=== PATIENT | male | born 1950 | race Hispanic/Latino ===

== ENCOUNTER 2019-10-22 04:54 | Inpatient (IN) | payer MEDICARE, OTHER ==
[2019-10-22 06:54] LABS: Anion Gap 18 mmol/L (10-20); Calc. Creatinine Clearance 0 mL/min (70-130); Calcium 8.7 mg/dL (7.8-10.44); Carbon Dioxide 16 mmol/L (23-31); Chloride 111 mmol/L (98-107); Estimated GFR-MDRD 10; Glucose 178 mg/dL (80-115); Potassium 4.4 mmol/L (3.5-5.1); Sodium 141 mmol/L (136-145)
[2019-10-22 07:05] LABS: BUN (Urea Nitrogen) 132 mg/dL (8.4-25.7)
[2019-10-22 08:48] VITALS: BMI 33.7
[2019-10-22] MEDS ORDERED: Acetaminophen 325 MG TAB PO PRN (08:52)
[2019-10-22] MEDS ORDERED: Senokot S 8.6-50 MG TAB PO PRN (08:52)
[2019-10-22] MEDS ORDERED: Dexamethasone 10 MG/ML VIAL SLOW IVP SCH (09:00)
[2019-10-22] MEDS ORDERED: Dexamethasone 20 MG/5 ML VIAL SLOW IVP SCH (09:00)
[2019-10-22] MEDS ORDERED: Prevnar 13-Val Conj/PF 0.5 ML SYRINGE IM ONE (10:00)
[2019-10-22] MEDS: Enoxaparin Sodium 30 MG/0.3 ML SYRINGE SC SCH (10:35)
[2019-10-22] MEDS: cefTRIAXone\\ROCEPHIN 1 GM in Sodium Chloride 0.9% 100 ML IVPB SCH (14:03)
[2019-10-22 14:25] LABS: #Eosinphils 0.1 thou/uL (0.0-0.7); #Monocytes 0.3 thou/uL (0.11-0.59); %Basophils 0.3 % (0.0-1.0); %Eosinophils 1.4 % (0.0-10.0); %Lymphocytes 10.4 % (21.0-51.0); %Monocytes 2.7 % (0.0-10.0); %Neutrophils 85.2 % (42.0-75.0); Hemoglobin 10.8 g/dL (14.0-18.0); Mean Corpuscular HGB CONC 33.1 g/dL (32.0-36.0); Mean Corpuscular Hemoglobin 31.6 pg (27.0-31.0); Mean Corpuscular Volume 95.5 fL (78.0-98.0); Mean Platelet Volume 9.3 fL (7.4-10.4); Platelet Count 193 thou/uL (130-400); RBC Distribution Width 12.6 % (11.5-14.5); Red Blood Cell (RBC) Count 3.41 mill/uL (4.70-6.10); White Blood Cell (WBC) Count 9.4 thou/uL (4.8-10.8)
[2019-10-22 14:31] LABS: HBSAg Index 0.14 S/CO (0-0.99); Hep B Surf Ag Non-Reactive S/CO (NonReactive)
[2019-10-22 14:58] LABS: ALT (SGPT) 47 U/L (8-55); AST (SGOT) 16 U/L (5-34); Albumin 3.2 g/dL (3.4-4.8); Alkaline Phosphatase 60 U/L (40-110); Anion Gap 19 mmol/L (10-20); Bilirubin, Total 0.3 mg/dL (0.2-1.2); Calc. Creatinine Clearance 16 mL/min (70-130); Carbon Dioxide 15 mmol/L (23-31); Chloride 110 mmol/L (98-107); Estimated GFR-MDRD 10; Globulin 4.4 g/dL (2.4-3.5); Glucose 212 mg/dL (80-115); Potassium 4.8 mmol/L (3.5-5.1); Protein, Total 7.6 g/dL (5.8-8.1); Sodium 139 mmol/L (136-145)
[2019-10-22 15:09] LABS: BUN (Urea Nitrogen) 131 mg/dL (8.4-25.7)
--- NOTE | 2019-10-22 15:50 | CON ---
DATE OF CONSULTATION: HISTORY OF PRESENT ILLNESS: Mr. Leonardo is a 69-year-old male, who [facility] He came into the ER at the [facility] and was noted to be in acute kidney injury. He was also COVID positive. We are here to further evaluate his acute kidney injury on top of his chronic renal failure. REVIEW OF SYSTEMS: No chest pain. Mild shortness of breath, which was transient. No chest pain. Denies any overt fever or chills. No gross hematuria. No dysuria. No urinary frequency. No productive cough. No fever or chills. No syncopal episode. No hematochezia. No melena. No hematemesis. No abdominal pain. Appetite and energy level are decreased. HOME MEDICATIONS: Include; 1. Glimepiride 1 mg daily. 2. Doxazosin 4 mg daily. 3. Lovastatin 40 mg tablet at bedtime. 4. Allopurinol 100 mg two tabs daily. 5. Losartan 25 mg once a day. PAST MEDICAL HISTORY: Type 2 diabetes mellitus, status post nephrolithiasis, BPH, gout, hyperlipidemia, and chronic renal failure. PAST SURGICAL HISTORY: Status post cystoscopy, status post lithotripsy, and status post colonoscopy. SOCIAL HISTORY: The patient lives in [place]. , one child. No alcohol intake. No IV drug abuse. He did smoke for at least 30 years, 2 packs a day. No IV drug abuse. Denies any blood transfusion. 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 Education, high school. ALLERGIES: NONE. TRAUMA: None. IMMUNIZATIONS: Up-to-date. HOSPITALIZATIONS: Please see past medical history. FAMILY HISTORY: No family history of ESRD. PHYSICAL EXAMINATION: VITAL SIGNS: Blood pressure is noted at 159/89, heart rate is 94, temperature 98.2, and O2 saturation 96% on room air. GENERAL: Awake, alert, obese, comfortable, not in distress. SKIN: Adequate turgor. HEENT: He has a pinkish conjunctivae. Anicteric sclerae. NECK: No neck mass. No carotid bruits. No JVD. CHEST: No deformities. LUNGS: Clear breath sounds. HEART: Normal sinus rhythm. No murmur. No gallops. No rubs. ABDOMEN: Globular, soft, and nontender. No masses. EXTREMITIES: No edema. No deformities. NEUROLOGICAL: Awake and oriented to 3 spheres. Moving all extremities. No tremors. No asterixis. No ataxia. LABORATORY DATA: Laboratories of October 22, 2019; sodium 141, potassium 4.4, chloride 111, carbon dioxide 16, BUN 132, creatinine 5.77, glucose 178, and calcium 8.7. White count 9.4, hemoglobin 10.8. ASSESSMENT AND PLAN: 1. COVID-19 positive - supportive management. The patient has been started on azithromycin and ceftriaxone. He has also been started on dexamethasone. Other medications started at this hospital is sodium bicarbonate 650 mg p.o. t.i.d. and Lovenox 30 mg subcu daily. 2. Acute kidney injury/chronic renal failure. I suspect possible prerenal component. Agree to hold off losartan. Empiric volume repletion, normal saline 100 mL/h. Possibility for dialysis remains with this patient, but he declined and he would like to think about it. From my understanding, he has underlying chronic renal failure. We will review a renal ultrasound as well as urinalysis with this patient. For the moment, agree with current management. There is no indication for any emergent hemodialysis. The patient is not in volume overload and his potassium is within normal. Thank you for the consult. We will continue to follow. Job ID: [id number] [facility]
[2019-10-22] MEDS: Sodium Chloride 0.9% 1,000 ML IV SCH (16:26)
[2019-10-22] MEDS: Sodium Bicarbonate Tab 325 MG TAB PO SCH ×2 (16:26→21:40)
--- NOTE | 2019-10-22 17:33 | HP ---
CHIEF COMPLAINT: Transfer from [facility] secondary to no beds available. HISTORY OF PRESENT ILLNESS: The patient is a 69-year-old man who states that he has not been feeling well since Father's Day. He stated that he came into the hospital on Tuesday for generalized body aches and pains and he was positive for COVID that Tuesday prior to coming to the hospital. The patient at this time was re-swapped on Tuesday; however, in the ER, per the notes, he was noted to have a hyperkalemia and also acute on chronic kidney disease. The patient at baseline has chronic kidney disease, I believe it is stage 4. However, he had worsening of his kidney function, so he was asked to come in for further evaluation. PAST MEDICAL HISTORY: He has a history of diabetes. He has a history of hypercholesterolemia, hypertension, and chronic kidney disease stage 4. He also has a history of renal stones. PAST SURGICAL HISTORY: He has had a rotator cuff repair done. Otherwise, no other surgeries. REVIEW OF SYSTEMS: All negative except for the ones mentioned above in the HPI. ALLERGIES: HE HAS NO KNOWN DRUG ALLERGIES. MEDICATIONS: 1. Aspirin 81 mg daily. 2. Verapamil 240 mg daily. 3. Actos 15 mg daily. 4. Valsartan 160 mg daily. 5. Lovastatin 40 mg b.i.d. The patient also was given azithromycin and ceftriaxone at the other hospital. FAMILY HISTORY: No history of heart disease, cancer, or strokes. DIAGNOSTIC STUDIES: His blood work at the outside hospital was noted to have a BNP of 11.8. CK of 73, troponin was 0.015. His AST was 15 and ALT was 60. WBCs 8.77, hemoglobin of 11.2, hematocrit of 35.2, and platelets were 267. Sodium of 139, potassium of 5.0, BUN of 148, and creatinine of 6.52. His repeat creatinine here was 5.77, BUN of 132, and potassium of 4.4. Troponin of 0.023. The patient had a COVID test done over there, which is still pending. The patient had a chest x-ray which indicated multifocal pneumonia. PHYSICAL EXAMINATION: VITAL SIGNS: Temperature of 97.7, 95% on room air, blood pressure 152/80, pulse 99, and respirations are 18. GENERAL: He is awake, alert, and oriented x3. Does not appear in distress. CV: S1 and S2 present. No murmurs, rubs, or gallops. ABDOMEN: Obese. Bowel sounds are present x2. No pain upon palpation. LUNGS: Clear to auscultation. No rhonchi or wheezes noted. EXTREMITIES: Mild lower extremity edema. Pedal pulses are present x2. NEUROVASCULAR: No focal deficits noted. SKIN: No cuts, lesions, or bruises noted. ASSESSMENT AND PLAN: The patient is a 69-year-old male who presents to the hospital with body aches and cough. At the outside hospital was noted to also have acute kidney injury and also hyperkalemia. At this time due to overcapacity, the patient was transferred here for further evaluation. 1. Acute kidney injury on chronic kidney disease, unclear what the patient's baseline is. The patient does not recall it. We will get Nephrology on board. The patient is not on dialysis. The patient is still making urine. His creatinine has improved. We will continue to monitor. He is not in any respiratory distress. I have asked to drink more water. I will hold off on hydration since his creatinine has improved just without any intervention. 2. Hyperkalemia in the setting of kidney disease. His repeat potassium was 4.4, I will hold his valsartan. 3. COVID positive. The patient was on ceftriaxone and on azithromycin. Chest x-ray, I was unable to look at it; however, the reading said he had pneumonia. We will continue his antibiotics. 4. Diabetes. We will check Accu-Cheks before meals and at bedtime and put on sliding scale. We will hold off on Actos for now. 5. Deep venous thrombosis prophylaxis. We will put the patient on SCDs and Lovenox and continue to monitor. 6. We will start the patient on some sodium bicarb tablets for his chronic kidney disease and also his anion gap metabolic acidosis. Job ID: [id number]
[2019-10-22] MEDS ORDERED: Dextrose 5% in Water 1,000 ML IV PRN (17:51)
[2019-10-22] MEDS ORDERED: Dextrose 50% Abboject 50 ML SYRINGE SLOW IVP PRN (17:51)
[2019-10-22] MEDS: HumaLOG 300 UNITS/3 ML VIAL SC PRN ×2 (18:26→21:46)
[2019-10-22 19:37] LABS: Bilirubin Negative (Negative); Blood, Urine 1+ (Negative); Clarity Clear (Clear); Glucose, Urine (Dipstick) 50 mg/dL (Negative); Ketone, Urine Negative (Negative); Leukocyte Negative Leu/uL (Negative); Nitrite Negative (Negative); Protein, Urine (Dipstick) 100 mg/dL (Neg-Trace); RBC/HPF 0-3 HPF (0-3); Specific Gravity, Urine 1.013 (1.002-1.036); Squamous Epithelial 0-3 HPF (0-3); Urobilinogen Normal mg/dL (Less than 2); WBC/HPF 0-3 HPF (0-3); pH, Urine 5.5 (5.0-9.0)
[2019-10-22 19:48] LABS: Bacteria/HPF 1+ HPF (None Seen)
[2019-10-22] MEDS ORDERED: Mag-Al 1200 mg/1200 mg/30 ML UDCUP PO PRN (21:14)
[2019-10-22] MEDS ORDERED: Ondansetron PF 4 MG/2 ML Vial IVP PRN (21:14)
[2019-10-22] MEDS ORDERED: Ondansetron ODT 4 MG TAB PO PRN (21:14)
[2019-10-22] MEDS ORDERED: Simethicone Chewable 80 MG TAB PO PRN (21:14)
[2019-10-22] MEDS ORDERED: Doxazosin 2 MG TAB PO SCH (21:45)
[2019-10-22] MEDS ORDERED: Melatonin 3 MG TAB PO SCH (21:45)
[2019-10-22] MEDS ORDERED: Allopurinol 100 MG TAB PO SCH (21:45)
[2019-10-23] MEDS: Sodium Chloride 0.9% 1,000 ML IV SCH ×2 (02:16→21:10)
[2019-10-23 05:52] LABS: Anion Gap 16 mmol/L (10-20); BUN (Urea Nitrogen) 121 mg/dL (8.4-25.7); Calc. Creatinine Clearance 18 mL/min (70-130); Carbon Dioxide 14 mmol/L (23-31); Chloride 112 mmol/L (98-107); Estimated GFR-MDRD 12; Glucose 156 mg/dL (80-115); Sodium 137 mmol/L (136-145)
--- NOTE | 2019-10-23 09:35 | PRG ---
DATE OF SERVICE: 10/23/2019 SUBJECTIVE: Mr. Leonardo is a 69-year-old male. The patient is from [place]. I saw the patient yesterday. I felt that he may have a superimposed hemodynamically-mediated renal dysfunction. Empiric volume repletion has been given with some improvement with the renal function. He tells me he is feeling better. Please note, he also is a COVID positive patient. He denies any chest pain or shortness of breath. OBJECTIVE: VITAL SIGNS: Blood pressure is 152/72, heart rate 96, respiratory rate 22, temperature 97.4, O2 saturation 94%. GENERAL: Awake, alert, comfortable, sitting. Not in distress. SKIN: Adequate turgor. HEENT: Pinkish conjunctivae. Anicteric sclerae. No neck mass. No carotid bruits. No JVD. CHEST: No deformities. LUNGS: Clear breath sounds. No wheezing. No crackles. HEART: Normal sinus rhythm. No murmurs, gallops, or rubs. ABDOMEN: Globular, soft, nontender. No masses. EXTREMITIES: No edema. No deformities. MEDICATIONS: Medications of October 23, 2019, reviewed. LABORATORY DATA: On October 23, 2019; sodium 137, potassium 5, chloride 112, carbon dioxide 14, BUN 121, creatinine 4.81, calcium is 8. White count 9.4, hemoglobin 10.8. Renal ultrasound is on hold due to COVID positivity with this patient. ASSESSMENT AND PLAN: 1. Acute kidney injury, consider hemodynamically-mediated renal dysfunction. Slightly improved creatinine. Continue empiric IV hydration. No indication for any emergent dialysis. Continue to hold any ARB or CHAYA-i 2. Chronic renal failure ? of possible underlying diabetic versus hypertensive nephropathy. 3. Overall agree with current management. We will recheck CBC and basic metabolic panel in a.m. 4. COVID-19 Positivity - supportive care. Job ID: [id number] [facility]
[2019-10-23] MEDS: Allopurinol 100 MG TAB PO SCH ×2 (09:38→21:11)
[2019-10-23] MEDS: Azithromycin 250 MG TAB PO SCH (09:38)
[2019-10-23] MEDS: Albumin 25% 25 GM/100 ML BOT IVPB SCH ×3 (09:38→23:53)
[2019-10-23] MEDS: hydrALAZINE 25 MG TAB PO SCH ×2 (09:38→21:10)
[2019-10-23] MEDS: Sodium Bicarbonate Tab 325 MG TAB PO SCH ×3 (09:38→21:10)
[2019-10-23] MEDS: Dexamethasone 4 mg/ml Vial SLOW IVP SCH (09:39)
[2019-10-23] MEDS: Enoxaparin Sodium 30 MG/0.3 ML SYRINGE SC SCH (09:39)
[2019-10-23] MEDS: cefTRIAXone\\ROCEPHIN 1 GM in Sodium Chloride 0.9% 100 ML IVPB SCH (12:10)
[2019-10-23] MEDS: HumaLOG 300 UNITS/3 ML VIAL SC PRN ×3 (12:19→21:39)
[2019-10-23] MEDS: Atorvastatin Calcium 40 MG TAB PO SCH (17:09)
[2019-10-23] MEDS: Melatonin 3 MG TAB PO SCH (21:11)
[2019-10-23] MEDS: Doxazosin 2 MG TAB PO SCH (21:11)
[2019-10-24 05:18] LABS: #Eosinphils 0.1 thou/uL (0.0-0.7); #Lymphocytes 1.4 thou/uL (1.20-3.40); #Monocytes 0.5 thou/uL (0.11-0.59); #Neutrophils 8.1 thou/uL (1.40-6.50); %Basophils 0.1 % (0.0-1.0); %Eosinophils 0.5 % (0.0-10.0); %Lymphocytes 14.4 % (21.0-51.0); %Monocytes 4.5 % (0.0-10.0); %Neutrophils 80.6 % (42.0-75.0); Hemoglobin 8.8 g/dL (14.0-18.0); Mean Corpuscular HGB CONC 31.8 g/dL (32.0-36.0); Mean Corpuscular Hemoglobin 30.5 pg (27.0-31.0); Mean Platelet Volume 10.1 fL (7.4-10.4); Platelet Count 155 thou/uL (130-400); RBC Distribution Width 12.6 % (11.5-14.5)
[2019-10-24] MEDS: Albumin 25% 25 GM/100 ML BOT IVPB SCH (05:43)
[2019-10-24 05:46] LABS: Anion Gap 16 mmol/L (10-20); BUN (Urea Nitrogen) 101 mg/dL (8.4-25.7); Calc. Creatinine Clearance 21 mL/min (70-130); Calcium 8.2 mg/dL (7.8-10.44); Carbon Dioxide 15 mmol/L (23-31); Chloride 113 mmol/L (98-107); Estimated GFR-MDRD 14; Glucose 151 mg/dL (80-115); Potassium 4.1 mmol/L (3.5-5.1); Sodium 140 mmol/L (136-145)
[2019-10-24] MEDS: Enoxaparin Sodium 30 MG/0.3 ML SYRINGE SC SCH (07:54)
[2019-10-24] MEDS: Metoprolol Tartrate 25 MG TAB PO SCH ×2 (07:55→21:31)
[2019-10-24] MEDS: Azithromycin 250 MG TAB PO SCH (07:55)
[2019-10-24] MEDS: Allopurinol 100 MG TAB PO SCH ×2 (07:55→21:31)
[2019-10-24] MEDS: hydrALAZINE 25 MG TAB PO SCH ×2 (07:55→21:31)
[2019-10-24] MEDS: Amlodipine 10 MG TAB PO SCH (07:55)
[2019-10-24] MEDS: Sodium Bicarbonate Tab 325 MG TAB PO SCH ×3 (07:55→21:31)
[2019-10-24] MEDS: Dexamethasone 4 mg/ml Vial SLOW IVP SCH (07:56)
--- NOTE | 2019-10-24 09:49 | PRG ---
DATE OF SERVICE: 10/24/2019 SUBJECTIVE: Mr. Leonardo is a 69-year-old male, who was a transferred from [place] due to COVID-19. He was also transferred due to his acute kidney injury. Initially, we felt he may have a simple hemodynamically-mediated renal dysfunction. Diuretics and CHAYA inhibitors as well as ARB has been discontinued with the patient. He has been started on IV hydration as well as albumin infusion. He is tolerating said treatment. The patient was seen in the shower. He voices no new complaints. He denies any chest pain or shortness of breath. OBJECTIVE: VITAL SIGNS: Blood pressure is 189/86, heart rate 60, respiratory rate 18, temperature 97.2, and O2 saturation 100%. GENERAL: He is noted to be awake, alert, sitting comfortable, not in distress. ABDOMEN: Noted to be globular and soft. EXTREMITIES: Showed no edema. MEDICATIONS: Medications of October 24, 2019, have been reviewed. LABORATORY DATA: Laboratories of October 24, 2019; sodium 140, potassium 4.1, chloride 113, carbon dioxide 15, BUN 101, creatinine 4.15, GFR 14 mL/minute, glucose 151, and glucose 8.2. ASSESSMENT AND PLAN: 1. Acute kidney injury - superimposed hemodynamically-mediated renal dysfunction. Continue supportive care. Continue IV hydration. No indication for any dialytic intervention. 2. Anemia. Hemoglobin was 8.8. Continue to observe. 3. COVID-19 infection - supportive care. Doing well. We will recheck CBC and basic metabolic panel in a.m. Job ID: [id number]
[2019-10-24] MEDS: Sodium Chloride 0.9% 1,000 ML IV SCH ×2 (10:25→16:25)
[2019-10-24] MEDS: cefTRIAXone\\ROCEPHIN 1 GM in Sodium Chloride 0.9% 100 ML IVPB SCH (12:20)
[2019-10-24] MEDS: Atorvastatin Calcium 40 MG TAB PO SCH (16:05)
[2019-10-24] MEDS: HumaLOG 300 UNITS/3 ML VIAL SC PRN ×2 (17:42→21:33)
--- NOTE | 2019-10-24 18:34 | PDOC.HOSPP ---
- Subjective Encounter Date: 10/23/19 Encounter Time: 10:30 Subjective: pt called on the phone no issues. - Objective Vital Signs & Weight: Vital Signs (12 hours) Temp Pulse Resp BP BP Pulse Ox 10/24/19 16:14 98.1 F 81 18 161/71 H 97 10/24/19 12:20 98.5 F 76 18 155/68 H 96 10/24/19 08:03 97.2 F L 60 18 189/86 H 100 10/24/19 07:55 87 Weight Weight 201 lb 1.6 oz I&O: 10/23/19 10/24/19 10/25/19 06:59 06:59 06:59 Intake Total 3370 1375 Output Total 1550 2155 Balance 1820 -780 Result Diagrams: 10/24/19 04:35 10/24/19 04:35 Additional Labs: Accuchecks 10/24/19 10/24/19 10/24/19 16:16 12:31 05:58 POC Glucose 207 H 188 H 151 H 10/23/19 10/23/19 21:24 16:53 POC Glucose 201 H 237 H Hospitalist ROS - Medication Medications: Active Medications Generic Name Dose Route Start Last Admin Trade Name Freq PRN Reason Stop Dose Admin Allopurinol 100 mg 10/23/19 09:00 10/24/19 07:55 Zyloprim PO 100 mg BID KRISTI Administration Amlodipine Besylate 10 mg 10/24/19 09:00 10/24/19 07:55 Norvasc PO 10 mg DAILY KRISTI Administration Atorvastatin Calcium 40 mg 10/23/19 17:00 10/24/19 16:05 Lipitor PO 40 mg QPM-WM KRISTI Administration Azithromycin 250 mg 10/23/19 09:00 10/24/19 07:55 Zithromax PO 10/26/19 09:01 250 mg DAILY KRISTI Administration Dexamethasone 6 mg 10/23/19 09:00 10/24/19 07:56 Decadron SLOW IVP 6 mg DAILY KRISTI Administration Doxazosin Mesylate 4 mg 10/23/19 21:00 10/23/19 21:11 Cardura PO 4 mg HS KRISTI Administration Enoxaparin Sodium 30 mg 10/22/19 09:00 10/24/19 07:54 Lovenox SC 30 mg 0900 KRISTI Administration Hydralazine HCl 25 mg 10/23/19 09:00 10/24/19 07:55 Apresoline PO 25 mg BID KRISTI Administration Ceftriaxone Sodium 1 gm/ 100 mls @ 200 mls/hr 10/22/19 13:00 10/24/19 12:20 Sodium Chloride IVPB 100 mls Q24HR KRISTI Administration Sodium Chloride 1,000 mls @ 100 mls/hr 10/22/19 14:30 10/24/19 16:25 Normal Saline 0.9% IV 1,000 mls .Q10H KRISTI Administration Insulin Human Lispro 0 units 10/22/19 17:51 10/24/19 17:42 Humalog SC 3 unit .MILD SLIDING SCALE PRN Administration Mild Correctional Scale Insulin Human Lispro 0 units 10/22/19 21:14 10/23/19 21:39 Humalog SC 2 unit .BEDTIME SLIDING SC PRN Administration Bedtime Correctional Scale Melatonin 3 mg 10/23/19 21:00 10/23/19 21:11 Melatonin PO 3 mg HS KRISTI Administration Metoprolol Tartrate 25 mg 10/24/19 09:00 10/24/19 07:55 Lopressor PO 25 mg BID KRISTI Administration Pantoprazole Sodium 40 mg 10/22/19 09:00 10/24/19 07:55 Protonix PO 40 mg DAILY KRISTI Administration Sodium Bicarbonate 650 mg 10/22/19 15:00 10/24/19 16:04 Bicarbonate, Sodium PO 650 mg TID KRISTI Administration Sodium Chloride 10 ml 10/22/19 21:00 10/24/19 07:56 Flush - Normal Saline IVF 10 ml Q12HR KRISTI Administration Hosp A/P (1) GRACIELA (acute kidney injury) Code(s): N17.9 - ACUTE KIDNEY FAILURE, UNSPECIFIED Status: Acute (2) COVID-19 Code(s): U07.1 - COVID-19 Status: Acute (3) HTN (hypertension) Code(s): I10 - ESSENTIAL (PRIMARY) HYPERTENSION Status: Acute - Plan in regards to covid he is doing well. pt's creatinine is improving. pt was seen by nephrology.
--- NOTE | 2019-10-24 18:39 | PDOC.HOSPP ---
- Subjective Encounter Date: 10/24/19 Encounter Time: 10:15 Subjective: pt up in bed feels well. - Objective Vital Signs & Weight: Vital Signs (12 hours) Temp Pulse Resp BP BP Pulse Ox 10/24/19 16:14 98.1 F 81 18 161/71 H 97 10/24/19 12:20 98.5 F 76 18 155/68 H 96 10/24/19 08:03 97.2 F L 60 18 189/86 H 100 10/24/19 07:55 87 Weight Weight 201 lb 1.6 oz I&O: 10/23/19 10/24/19 10/25/19 06:59 06:59 06:59 Intake Total 3370 1375 Output Total 1550 2155 Balance 1820 -780 Result Diagrams: 10/24/19 04:35 10/24/19 04:35 Additional Labs: Accuchecks 10/24/19 10/24/19 10/24/19 16:16 12:31 05:58 POC Glucose 207 H 188 H 151 H 10/23/19 10/23/19 21:24 16:53 POC Glucose 201 H 237 H Hospitalist ROS - Review of Systems Cardiovascular: denies: chest pain, palpitations, orthopnea, paroxysmal noc. dyspnea, edema, light headedness, other Gastrointestinal: denies: nausea, vomiting, abdominal pain, diarrhea, constipation, melena, hematochezia, other Genitourinary: denies: dysuria, frequency, incontinence, hematuria, retention, other - Medication Medications: Active Medications Generic Name Dose Route Start Last Admin Trade Name Freq PRN Reason Stop Dose Admin Allopurinol 100 mg 10/23/19 09:00 10/24/19 07:55 Zyloprim PO 100 mg BID KRISTI Administration Amlodipine Besylate 10 mg 10/24/19 09:00 10/24/19 07:55 Norvasc PO 10 mg DAILY KRISTI Administration Atorvastatin Calcium 40 mg 10/23/19 17:00 10/24/19 16:05 Lipitor PO 40 mg QPM-WM KRISTI Administration Azithromycin 250 mg 10/23/19 09:00 10/24/19 07:55 Zithromax PO 10/26/19 09:01 250 mg DAILY KRISTI Administration Dexamethasone 6 mg 10/23/19 09:00 10/24/19 07:56 Decadron SLOW IVP 6 mg DAILY KRISTI Administration Doxazosin Mesylate 4 mg 10/23/19 21:00 10/23/19 21:11 Cardura PO 4 mg HS KRISTI Administration Enoxaparin Sodium 30 mg 10/22/19 09:00 10/24/19 07:54 Lovenox SC 30 mg 0900 KRISTI Administration Ceftriaxone Sodium 1 gm/ 100 mls @ 200 mls/hr 10/22/19 13:00 10/24/19 12:20 Sodium Chloride IVPB 100 mls Q24HR KRISTI Administration Sodium Chloride 1,000 mls @ 100 mls/hr 10/22/19 14:30 10/24/19 16:25 Normal Saline 0.9% IV 1,000 mls .Q10H KRISTI Administration Insulin Human Lispro 0 units 10/22/19 17:51 10/24/19 17:42 Humalog SC 3 unit .MILD SLIDING SCALE PRN Administration Mild Correctional Scale Insulin Human Lispro 0 units 10/22/19 21:14 10/23/19 21:39 Humalog SC 2 unit .BEDTIME SLIDING SC PRN Administration Bedtime Correctional Scale Melatonin 3 mg 10/23/19 21:00 10/23/19 21:11 Melatonin PO 3 mg HS KRISTI Administration Metoprolol Tartrate 25 mg 10/24/19 09:00 10/24/19 07:55 Lopressor PO 25 mg BID KRISTI Administration Pantoprazole Sodium 40 mg 10/22/19 09:00 10/24/19 07:55 Protonix PO 40 mg DAILY KRISTI Administration Sodium Bicarbonate 650 mg 10/22/19 15:00 10/24/19 16:04 Bicarbonate, Sodium PO 650 mg TID KRISTI Administration Sodium Chloride 10 ml 10/22/19 21:00 10/24/19 07:56 Flush - Normal Saline IVF 10 ml Q12HR KRISTI Administration - Exam Neck: negative: supple, symmetric, no JVD, no thyromegaly, no lymphadenopathy, no carotid bruit, JVD Heart: negative: RRR, no murmur, no gallops, no rubs, normal peripheral pulses, irregular, diminshed peripheral pulses, murmur present, II/IV, III/IV Respiratory: negative: CTAB, no wheezes, no rales, no ronchi, normal chest expansion, no tachypnea, normal percussion, rales, rhonchi, tachypneic, wheezes Gastrointestinal: negative: soft, non-tender, non-distended, normal bowel sounds , no palpable masses, no hepatomegaly, no splenomegaly, no bruit, no guarding, no rigidity, tender to palpation, distended, diminished bowl sounds, voluntary guarding Hosp A/P (1) GRACIELA (acute kidney injury) Code(s): N17.9 - ACUTE KIDNEY FAILURE, UNSPECIFIED Status: Acute (2) COVID-19 Code(s): U07.1 - COVID-19 Status: Acute (3) HTN (hypertension) Code(s): I10 - ESSENTIAL (PRIMARY) HYPERTENSION Status: Acute - Plan in regards to covid he is doing well. pt's creatinine is improving. pt was seen by nephrology. 10/23 will get his baseline creatinine. spoke with nephrology who agrees for possible discharge in am if his creatinine continues to be stable. will check bmp in am.
[2019-10-24] MEDS: Melatonin 3 MG TAB PO SCH (21:31)
[2019-10-24] MEDS: Doxazosin 2 MG TAB PO SCH (21:31)
[2019-10-25] MEDS: Sodium Chloride 0.9% 1,000 ML IV SCH ×2 (04:52→14:34)
[2019-10-25 05:11] LABS: #Monocytes 0.7 thou/uL (0.11-0.59); #Neutrophils 8.8 thou/uL (1.40-6.50); %Basophils 0.2 % (0.0-1.0); %Eosinophils 0.2 % (0.0-10.0); %Lymphocytes 17.2 % (21.0-51.0); %Monocytes 5.9 % (0.0-10.0); %Neutrophils 76.5 % (42.0-75.0); Hemoglobin 9.7 g/dL (14.0-18.0); Mean Corpuscular HGB CONC 33.4 g/dL (32.0-36.0); Mean Corpuscular Hemoglobin 32.1 pg (27.0-31.0); Mean Corpuscular Volume 95.9 fL (78.0-98.0); Platelet Count 159 thou/uL (130-400); RBC Distribution Width 12.6 % (11.5-14.5); Red Blood Cell (RBC) Count 3.02 mill/uL (4.70-6.10); White Blood Cell (WBC) Count 11.5 thou/uL (4.8-10.8)
[2019-10-25 05:36] LABS: Anion Gap 14 mmol/L (10-20); BUN (Urea Nitrogen) 87 mg/dL (8.4-25.7); Calc. Creatinine Clearance 23 mL/min (70-130); Calcium 8.2 mg/dL (7.8-10.44); Carbon Dioxide 19 mmol/L (23-31); Chloride 112 mmol/L (98-107); Estimated GFR-MDRD 16; Glucose 150 mg/dL (80-115); Potassium 4.3 mmol/L (3.5-5.1); Sodium 141 mmol/L (136-145)
[2019-10-25] MEDS: Dexamethasone 4 mg/ml Vial SLOW IVP SCH (08:50)
[2019-10-25] MEDS: Enoxaparin Sodium 30 MG/0.3 ML SYRINGE SC SCH (08:52)
[2019-10-25] MEDS: Allopurinol 100 MG TAB PO SCH (08:52)
[2019-10-25] MEDS: hydrALAZINE 25 MG TAB PO SCH (08:52)
[2019-10-25] MEDS: Azithromycin 250 MG TAB PO SCH (08:53)
[2019-10-25] MEDS: Sodium Bicarbonate Tab 325 MG TAB PO SCH (08:53)
[2019-10-25] MEDS: Amlodipine 10 MG TAB PO SCH (08:53)
[2019-10-25] MEDS: Metoprolol Tartrate 25 MG TAB PO SCH (08:53)
[2019-10-25] MEDS ORDERED: cefTRIAXone\\ROCEPHIN 1 GM in Sodium Chloride 0.9% 100 ML IVPB SCH (09:00)
--- NOTE | 2019-10-25 09:45 | PRG ---
DATE OF SERVICE: 10/25/2019 SERVICE: Renal Medicine. SUBJECTIVE: Mr. Leonardo is a 69-year-old male, who was diagnosed with COVID-19 positivity. He was also noted to be in acute kidney injury. Due to the renal dysfunction, he is admitted for further management. He most likely has a hemodynamically-mediated renal dysfunction. Renal function is much improved with IV hydration. He has also received some albumin infusion. Creatinine now is noted at 3.83 and previously, this patient was admitted with a peak creatinine level of 5.77. The patient is also diuresing. The patient voices no new complaints. No chest pain or shortness of breath. OBJECTIVE: VITAL SIGNS: Blood pressure 164/76, heart rate is 70, respiratory rate 18, O2 saturation 94% on room air, and temperature 98.4. GENERAL: The patient is awake, alert, comfortable, obese, not in distress. SKIN: Adequate turgor. HEENT: He has pinkish conjunctivae. Anicteric sclerae. NECK: No neck mass. No carotid bruits. CHEST: No deformities. LUNGS: Clear breath sounds. HEART: Normal sinus rhythm. ABDOMEN: Globular and soft. EXTREMITIES: No edema. No deformities. MEDICATIONS: Medications of October 25, 2019, were reviewed. LABORATORY DATA: Laboratories of October 25, 2019; white count 11.5, hemoglobin 9.7. Sodium 141, potassium 4.3, chloride 112, carbon dioxide 19, BUN 87, creatinine 3.83, GFR 16 mL/minute, and calcium 8.2. ASSESSMENT AND PLAN: 1. Acute kidney [id number] renal dysfunction. Much improved with hydration-crystalloids and colloids. I feel that the renal function will further improve. The patient is increasing his p.o. intake. I do not see any indication for any dialysis. 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 2. COVID-19 infection-doing well, clinically asymptomatic. Agree with current management. Job ID: [id number]
[2019-10-25] MEDS: HumaLOG 300 UNITS/3 ML VIAL SC PRN (13:04)
[2019-10-25 13:24] VITALS: BP 157/66; TEMP 97.7
--- NOTE | 2019-10-26 01:52 | DIS ---
DATE OF ADMISSION: 10/22/2019 DATE OF DISCHARGE: 10/25/2019 DISCHARGE DIAGNOSES: 1. [id number] kidney failure. 2. Acute kidney injury on chronic kidney disease, stage 4. 3. Chronic kidney disease stage 4. 4. Hypertension. 5. Diabetes. 6. COVID positive. HOSPITAL COURSE: The patient is a 69-year-old male who was a transfer from [place] for acute kidney injury. He was found to have positive COVID. He was initially put on antibiotics given his chest x-ray findings. His antibiotic initially was continued here. However, he continued to improve, but did not require any oxygen requirements. At this time, I did not feel the need to continue the antibiotics. He was also on steroids. Again, never had any desaturations and I have discontinued the steroids also. The patient was seen by Nephrology. He was given IV fluids and also some albumin and his creatinine currently is 3.83. The patient does not know his baseline creatinine. I have asked him to follow up with his equipment associate next week for a followup with lab work. HOME MEDICATIONS: 1. He was on Cozaar, which I have discontinued. 2. He is going to be on Norvasc 10 mg daily. 3. Metoprolol 25 mg b.i.d. 4. Cardura 4 mg at bedtime. 5. Glimepiride 1 daily. 6. Lovastatin 80 mg daily. 7. Allopurinol 100 mg b.i.d. 8. I also added hydralazine 50 mg b.i.d. PHYSICAL EXAMINATION: VITAL SIGNS: On discharge, temperature 98.2, 82, 20, 96% on room air, 164/76. GENERAL: He is awake, alert, and oriented x3. Does not appear in distress. CV: S1, S2 present. No murmurs, gallops. ABDOMEN: Soft and nontender. Bowel sounds are present x2. Again he will be discharged home. I do not think he requires Decadron nor does he require steroids. His x-ray did show COVID-like appearance. However, he is resting comfortably has not required oxygen. Job ID: [id number]
--- NOTE | 2019-10-26 07:40 | PQF ---
Dear : Gay Faria Date : 10/26/19 Please exercise your independent, professional judgment in responding to the clarification form. Clinical indicators are provided on the bottom of this form for your review Can you please further clarify if Pneumonia is ruled in or ruled out? Pneumonia [ ] Ruled in diagnosis [ ] Continue to treat [ ] Resolved [ ] Ruled out diagnosis [ ] Improving [ ] Cannot rule out diagnosis [ ] Other diagnosis please specify [ ] Unable to determine Physician Signature: Date/Time: For continuity of documentation, please document condition throughout progress notes and discharge summary. Thank You. To be completed by CDI/Coding staff for physician review: Present Clinical Indicators - Signs / Symptoms / Labs Results and Location in Medical Record [ x ] chest x ray which shows indicated multifocal pneumonia H and P pg.1-2 [ x ] The reading said he had pneumonia H and P pg.2 [ x ] COIVD19 infection, clinically asymptomatic PN 10/24 pg.2 [ x ] mild respiratory distress ED Notes 10/21 [ x ] mild SOB Consult 10/21 [ x ] Labs WBC: 10/21=9.4 10/23=10.0 10/24=11.5 Labs 10/21 Present Risk Factors Results and Location in Medical Record [x ] GRACIELA on CKD4 H and P pg.2 [ x ] COVID19 positive H and P pg.2 [ x ] HTN DS pg.1 [ x ] DM DS pg.1 [ x ] Former Smoker ED Notes 10/21 [ x ] 69 years old male HP 10/21 Present Treatments Results and Location in Medical Record [ x ] IV Fluids MAR [ x ] Rocephin 1gm IV MAR [ x ] Azithromycin 250mg PO MAR [ x ] Dexamethasone 6mg IV MAR [ x ] Doxazosin 4mg PO MAR CDS/Wool Sorter Signature: Steven Ki Nomat Phone #: ext [phone] Date:10/26/19 This is a permanent part of the Medical Record [facility]
== END 2019-10-25 16:10 | disposition home or self-care (01) | DRG 682 ==
LOC: ERS 04:54 → 2SW 07:37
PROVIDERS: ADMIT Internal Medicine; ATTEND Internal Medicine
PROC: 8E0ZXY6 Isolation (ICD-10-PCS; principal; 2019-10-22)
DX: N17.9 Acute kidney failure, unspecified (principal); U07.1 COVID-19; E87.2 Acidosis; N18.4 Chronic kidney disease, stage 4 (severe); I12.9 Hypertensive chronic kidney disease with stage 1 through stage 4 chronic kidney disease, or unspecified chronic kidney disease; E11.22 Type 2 diabetes mellitus with diabetic chronic kidney disease; E78.5 Hyperlipidemia, unspecified; E78.00 Pure hypercholesterolemia, unspecified; Z87.891 Personal history of nicotine dependence; Z79.84 Long term (current) use of oral hypoglycemic drugs; Z79.899 Other long term (current) drug therapy; Z87.442 Personal history of urinary calculi; Z79.82 Long term (current) use of aspirin
CPT/HCPCS: 36415; 36416; 80048; 81001; 82728; 84484; 85025; 86140; 87340; 93005; J0696; J1100; J1650; J3490; P9047